=== PATIENT | female | born 1970 | race Caucasian/White ===

== ENCOUNTER 2017-10-17 06:38 | Emergency (ER) | payer OTHER ==
[~2017-10-17] VITALS: Ht 165.1 cm; Wt 129.7 kg
[~2017-10-17 06:38] MED LIST: ADVAIR 250-501 EACH INH; ALEVE220 MG PO; ALLERGY RELIEF10 M5 PO; AMILORIDE HCL-1 EACH PO; CELEBREX 200 M200 M1 PO; GABAPENTIN100 MG PO; GLUCOPHAGE500 MG PO; HCTZ; LEVAQUIN 500 M500 M2 PO; LUPRON; MUCINEX100 MG PO; PREDNISONE 10 M10 MG PO; SINGULAIR; SINGULAIR 10 MG10 M1 PO; VENTOLIN HFA INH8 GM IH; VENTOLIN HFA INH8 GM INH; VITAMIN E400 UNIT PO; ZYRTEC; ZYRTEC 10 MG TA10 M1 PO; [UNRECOGNIZED DRUG - REMARK]
[2017-10-17] MEDS ORDERED: PREDNISONE50 MG PO (07:22)
[2017-10-17] MEDS ORDERED: PROAIR HFA8.5 GM PO (07:22)
[2017-10-17] MEDS ORDERED: ALBUTEROL2.5 MG/31 INH (07:22)
[2017-10-17 07:39] VITALS: BP 145/89
== END 2017-10-17 07:40 | disposition home or self-care (01) ==
LOC: M.ERS 06:38
DX: J45.901 Unspecified asthma with (acute) exacerbation (principal); I10 Essential (primary) hypertension; Z90.89 Acquired absence of other organs; Z87.442 Personal history of urinary calculi; Z88.6 Allergy status to analgesic agent; Z88.5 Allergy status to narcotic agent; Z88.1 Allergy status to other antibiotic agents

== ENCOUNTER → 2018-06-21 | Outpatient (CLI) | payer OTHER ==
[2018-06-21] VITALS (13 sets, daily range): BP systolic 108–140; BP diastolic 56–94
[~2018-06-21] VITALS: Ht 165.1 cm; Wt 122.0 kg
[~2018-06-21] MED LIST changes: +ALBUTEROL2.5 MG/31 INH; +PREDNISONE50 MG PO; +PROAIR HFA8.5 GM PO
[2018-06-21 08:34] LABS: ABSOLUTE BASOPHILS 0.1 thou/uL (0.0-0.2); ABSOLUTE EOSINOPHILS 0.1 thou/uL (0.0-0.7); ABSOLUTE LYMPHOCYTES 2.2 thou/uL (0.8-5.3); ABSOLUTE MONOCYTES 0.4 thou/uL (0.0-1.2); ABSOLUTE NEUTROPHILS 5.6 thou/uL (1.6-8.1); BASOPHILS 1.3 %; EOSINOPHILS 0.8 %; HEMATOCRIT 43.8 % (37.0-47.0); LYMPHOCYTES 26.3 %; MCH 30.5 pg (26.0-34.0); MCHC 34.2 g/dL (28.0-37.0); MCV 89.1 fL (80.0-100.0); MONOCYTES 4.8 %; MPV 9.7 fl. (7.2-11.1); NUCLEATED RBCS 0 /100WBC; PLATELET COUNT* 207 thou/uL (150-400); POLYS 66.8 %; RBC 4.91 mil/uL (4.20-5.00); RDW-CV 14.7 % (10.5-14.5); WBC 8.4 thou/uL (4.0-11.0)
[2018-06-21 08:42] LABS: CALCIUM 9.2 mg/dL (8.5-10.1); CREATININE 0.7 mg/dL (0.6-1.3); POTASSIUM 3.5 mmol/L (3.5-5.1)
[2018-06-21 08:45] LABS: APTT 28.4 Seconds (25.0-31.3)
[2018-06-21 08:47] LABS: ALBUMIN 3.7 g/dL (3.4-5.0); TOTAL BILIRUBIN 0.6 mg/dL (<0.1-1.0); TOTAL PROTEIN 8.2 g/dL (6.4-8.2)
--- NOTE | 2018-06-27 14:06 | PATH ---
[address] [address] PATHOLOGY RPT PROCEDURE Name: AMELIE IGNACIO Room: [facility]..#: [id number] Admission: 06/21/18 Date of : 74 Discharge: Report #: [id number] Path Case #: [id number] [facility] Accession Number: [id number] . 01 Material submitted: . LIVER BIOPSY . 01 Clinical history: . Elevated LFT's . (Office visit with Brigitte Gil DO, 05/09/2018) History of type 2 diabetes mellitus with hyperglycemia (CMS/HCC), morbid obesity (BMI greater than 40), prior cholecystectomy. . (05/09/2018) T-bili 1.3, alk phos 179 (39-117 IU/L), AST 294, ALT 141. . (06/21/2018) T-bili 0.6, alk phos 180 (46-116 IU/L), ALT 212, AST 249. . 02 Diagnosis: Liver biopsy: - Benign liver with moderate predominantly macrovesicular steatohepatitis and bridging fibrosis. See comment. (LOVELY:hope; 06/23/2018) MBR/06/23/2018 . 02 Comment: Sections show benign liver with moderate lobular and mild portal inflammation including easily identified neutrophils and very few plasma cells, without eosinophils or granulomas. Ballooning of hepatocytes and Destiny's hyaline is easily identified. There is minimal duct injury within portal tracts, cholestasis is not evident. Properly controlled special stains performed on each of blocks A1 through A3 show identical findings as follows. . PAS with and without diastase: No positive globules. Iron: No stainable increase. Reticulin: Hepatic plates distorted. Trichrome: Bridging fibrosis including perisinusoidal ("chicken wire") fibrosis. . These findings are compatible with non-alcoholic steatohepatitis, however, viral serology including hepatitis C is recommended and alcoholic steatohepatitis cannot be entirely excluded. The NAFLD activity score is as follows: . Steatosis grade: 2 (34-66%). Lobular inflammation: 1 (<2 foci per 20x field). Hepatocellular ballooning fibrosis: 2 (moderate to marked). [place] [address] PATHOLOGY RPT PROCEDURE Name: AMELIE IGNACIO Room: [facility]#: [id number] Admission: 06/21/18 Date of : 74 Discharge: Report #: [id number] Path Case #: [id number] NAFLD activity score: 5. Fibrosis score: 3 (bridging fibrosis). . Reviewed with Dr. Eboni Villanueva who agrees with the diagnosis and interpretation. . 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 02 Electronically signed: . Jona Dutton MD, Pathologist NPI- [id number] . 01 Gross description: . Received in formalin labeled "Curless, Amelie, liver BX," are 3 distinct needle cores of lobo soft tissue ranging from 1.4 to 1.9 cm in length and measuring 0.1 cm each in diameter. The specimen is submitted entirely in cassettes A1 through A3. (TSD; 06/21/2018) TOB/TOB . 02 Pathologist provided ICD-10: K75.81, K74.0 . 02 CPT . 876129, 994437, 755151, 810207, 804392, 516424, 023774, 516274, 683899, 167054, 533336, 802975, 474077 Specimen Comment: A courtesy copy of this report has been sent to Specimen Comment: [phone], , . Specimen Comment: Report sent to ,DR QUINTEROS / DR GIL Specimen Comment: A duplicate report has been generated due to demographic updates. Performed at: 01 [facility] [address], [place], [place] [id number] MD Kunal Higgins MD Phone: [phone] Performed at: 02 [facility] [address], [place], [place] [id number] MD Jona Dutton MD Phone: [phone]
== END ==
LOC: M.INT 07:47
PROVIDERS: Radiology Diagnostic Radiology
DX: K75.81 Nonalcoholic steatohepatitis (NASH) (principal); K74.0 Hepatic fibrosis; R94.5 Abnormal results of liver function studies; I10 Essential (primary) hypertension; J45.909 Unspecified asthma, uncomplicated; E11.9 Type 2 diabetes mellitus without complications; Z90.49 Acquired absence of other specified parts of digestive tract; Z79.4 Long term (current) use of insulin; Z98.890 Other specified postprocedural states; Z79.899 Other long term (current) drug therapy; Z83.3 Family history of diabetes mellitus; Z88.8 Allergy status to other drugs, medicaments and biological substances; Z88.6 Allergy status to analgesic agent

== ENCOUNTER → 2019-09-19 | Outpatient (CLI) | payer OTHER | LOC: M.LAB 09:26 | PROVIDERS: ATTEND Family Medicine | DX: U07.1 COVID-19 (principal) ==